=== PATIENT | male | born 2000 | race Caucasian/White ===

== ENCOUNTER 2022-03-03 21:18 | Emergency (ER) | payer MEDICAID ==
[~2022-03-03] VITALS: Ht 190.5 cm; Wt 118.2 kg
[2022-03-03 21:24] VITALS: BP 156/98
[2022-03-03] MEDS ORDERED: TETanus/Pertussis (Acell)/Diphther VAC/PF (Tdap-Adult) 0.5ml syringe IMVAC ONE (23:05)
== END 2022-03-03 23:48 | disposition home or self-care (01) ==
LOC: ER 21:19
DX: S61.210A Laceration without foreign body of right index finger without damage to nail, initial encounter (principal); Z72.89 Other problems related to lifestyle; Z88.2 Allergy status to sulfonamides; Z20.3 Contact with and (suspected) exposure to rabies; X58.XXXA Exposure to other specified factors, initial encounter; Y93.89 Activity, other specified; Y92.89 Other specified places as the place of occurrence of the external cause; Y99.8 Other external cause status
CPT/HCPCS: 90471; 90715; 99283

== ENCOUNTER 2022-07-01 21:49 | Emergency (ER) | payer MEDICAID ==
[~2022-07-01] VITALS: Ht 190.5 cm; Wt 115.2 kg
[2022-07-01 22:17] VITALS: BP 148/87
[2022-07-02] MEDS ORDERED: HYDR-3972 PO (01:54)
== END 2022-07-01 23:59 | disposition left against medical advice (07) ==
LOC: ER 21:50
DX: M25.561 Pain in right knee (principal); Z53.21 Procedure and treatment not carried out due to patient leaving prior to being seen by health care provider
CPT/HCPCS: 73564

== ENCOUNTER 2022-07-02 00:19 | Emergency (ER) | payer MEDICAID ==
[~2022-07-02] VITALS: Ht 188 cm; Wt 115.2 kg
[2022-07-02 01:44] VITALS: BP 136/95
[2022-07-02] MEDS ORDERED: HYDR-3972 PO (01:54)
[2022-07-02] MEDS ORDERED: HYDROcodone/acetaminophen 10/325mg tab PO ONE (02:00)
== END 2022-07-02 02:20 | disposition home or self-care (01) ==
LOC: ER 00:19
DX: M25.461 Effusion, right knee (principal); Z88.2 Allergy status to sulfonamides
CPT/HCPCS: 29505; 99284

== ENCOUNTER 2023-01-12 20:57 | Emergency (ER) | payer MEDICAID ==
[~2023-01-12] VITALS: Ht 190.5 cm; Wt 113.6 kg
--- NOTE | 2023-01-12 21:35 | NUR ---
Presented patient to MD, inquired about EKG and/or labs for patient. Maricruz SPANN stated to hold off on interventions for now.
[2023-01-12] MEDS ORDERED: ondansetron 4mg rapidly disintigrating tab PO ONE (22:35)
[2023-01-12] MEDS ORDERED: chlordiazePOXIDE 25mg capsule PO ONE (22:35)
[2023-01-12] MEDS ORDERED: ONDA4TAB12 PO (22:53)
[2023-01-12] MEDS ORDERED: ATI1T PO (22:53)
[2023-01-12] MEDS ORDERED: GABA-530 PO (22:53)
[2023-01-12 23:30] VITALS: BP 180/119
== END 2023-01-12 23:31 | disposition home or self-care (01) ==
LOC: ER 20:58
DX: I10 Essential (primary) hypertension (principal); F10.10 Alcohol abuse, uncomplicated; K08.89 Other specified disorders of teeth and supporting structures; R11.2 Nausea with vomiting, unspecified; Z88.2 Allergy status to sulfonamides; Y90.9 Presence of alcohol in blood, level not specified
CPT/HCPCS: 99283

== ENCOUNTER 2023-05-08 18:57 | Emergency (ER) | payer MEDICAID ==
[~2023-05-08] VITALS: Ht 190.5 cm; Wt 120.5 kg
[~2023-05-08 18:57] MED LIST: ATI1T PO; GABA-530 PO; ONDA4TAB12 PO
[2023-05-08] MEDS ORDERED: normal saline 1000ML IV soln IVB ONE (19:35)
[2023-05-08] MEDS ORDERED: LORazepam 2 mg/ml vial IV ONE (19:35)
[2023-05-08] MEDS ORDERED: famotidine/PF 10 mg/ml inj IV ONE (19:35)
[2023-05-08] MEDS ORDERED: normal saline 1000ml 1,000 ML IV ONE ×2 (19:35)
[2023-05-08] MEDS ORDERED: ondansetron/PF 4mg/2ml inj IV ONE (19:35)
[2023-05-08 20:02] LABS: ALANINE AMINOTRANSFERASE 59 U/L (12-78); ALBUMIN 4.3 G/DL (3.4-5.0); ALBUMIN/GLOBULIN RATIO 1.5 (1.1-1.5); ALKALINE PHOSPHATASE 123 IU/L (46-116); ANION GAP 13 (8-16); ASPARTATE AMINO TRANSFERASE 33 U/L (10-37); BLOOD UREA NITROGEN 10 MG/DL (7-18); BUN/CREATININE RATIO 10.5 (10.0-20.0); CALCIUM 8.7 MG/DL (8.5-10.1); CHLORIDE 103 MMOL/L (99-107); CREATININE 0.95 MG/DL (0.60-1.10); GLUCOSE 104 MG/DL (70-104); POTASSIUM 3.2 MMOL/L (3.5-5.1); SODIUM 137 MMOL/L (135-145); TOTAL CARBON DIOXIDE 21.2 MMOL/L (24-32); TOTAL PROTEIN 7.1 G/DL (6.4-8.2); eGFR > 90 ML/MIN
[2023-05-08 20:05] LABS: LIPASE 90 U/L (73-393)
[2023-05-08 20:37] LABS: BASOPHILS % (AUTO) 0.6 % (0-1); EOSINOPHILS % (AUTO) 0.4 % (0-6); HEMATOCRIT 44.6 % (42.0-52.0); HEMOGLOBIN 15.7 g/dl (14.0-17.9); LYMPHOCYTES # (AUTO) 1.5 X10'3 (1.1-4.8); LYMPHOCYTES % (AUTO) 19.8 % (21-51); MEAN CORPUSCULAR HGB CONC 35.3 g/dL (33.0-36.5); MEAN CORPUSCULAR VOLUME 85.2 FL (78-98); MEAN PLATELET VOLUME 7.3 FL (7.4-10.4); MONOCYTES # (AUTO) 0.5 X10'3 (0-0.9); MONOCYTES % (AUTO) 6.1 % (2-12); NEUTROPHILS # (AUTO) 5.7 X10'3 (1.8-7.7); NEUTROPHILS % (AUTO) 73.1 % (42-75); PLATELET COUNT 266 X10'3 (140-440); RED BLOOD COUNT 5.23 X10'6 (4.70-6.10); RED CELL DISTRIBUTION WIDTH 14.2 % (11.5-14.5); WHITE BLOOD COUNT 7.8 X10'3 (4.5-11.0)
[2023-05-08] MEDS ORDERED: LORA-269 PO (20:48)
[2023-05-08] MEDS ORDERED: potassium Cl 20 mEq SR tablet PO STA (20:49)
[2023-05-08 21:10] VITALS: BP 149/101
== END 2023-05-08 21:12 | disposition home or self-care (01) ==
LOC: ER 18:57
DX: F10.239 Alcohol dependence with withdrawal, unspecified (principal); R11.0 Nausea; R07.89 Other chest pain; F41.1 Generalized anxiety disorder; E86.0 Dehydration; E87.5 Hyperkalemia; Z72.89 Other problems related to lifestyle; Y90.9 Presence of alcohol in blood, level not specified
CPT/HCPCS: 36415; 71045; 80053; 83690; 84484; 85025; 93005; 96361; 96374; 96375; 99285; J2060; J2405; J3490; J7030

== ENCOUNTER 2023-10-16 11:33 | Emergency (ER) | payer MEDICAID ==
[~2023-10-16] VITALS: Ht 190.5 cm; Wt 60.9 kg
[~2023-10-16 11:33] MED LIST changes: +LORA-269 PO
[2023-10-16 11:37] VITALS: TEMP 98.7
[2023-10-16] MEDS ORDERED: AMLO5TAB PO (12:48)
[2023-10-16 13:28] VITALS: BP 155/96; PULSE 99; RESP 18; O2SAT 99
== END 2023-10-16 13:30 | disposition home or self-care (01) ==
LOC: ER 11:34
DX: I10 Essential (primary) hypertension (principal); R51.9 Headache, unspecified; Z79.899 Other long term (current) drug therapy; Z88.2 Allergy status to sulfonamides
CPT/HCPCS: 99283